=== PATIENT | male | born 1950 | race Caucasian/White ===

== ENCOUNTER 2019-03-25 05:43 | Inpatient (IN) | payer OTHER ==
[2019-03-17 14:44] LABS: BASOPHILS # (AUTO) 0.1 X10'3 (0-0.2); BASOPHILS % (AUTO) 1.2 % (0-1); EOSINOPHILS # (AUTO) 0.3 X10'3 (0-0.9); EOSINOPHILS % (AUTO) 3.6 % (0-6); LYMPHOCYTES % (AUTO) 25.8 % (21-51); MEAN CORPUSCULAR HEMOGLOBIN 29.2 PG (27.0-31.0); MEAN CORPUSCULAR HGB CONC 35.4 g/dL (33.0-36.5); MEAN CORPUSCULAR VOLUME 82.3 FL (78-98); MEAN PLATELET VOLUME 8.8 FL (7.4-10.4); MONOCYTES # (AUTO) 0.4 X10'3 (0-0.9); MONOCYTES % (AUTO) 5.7 % (2-12); NEUTROPHILS # (AUTO) 4.9 X10'3 (1.8-7.7); NEUTROPHILS % (AUTO) 63.7 % (42-75); PRE OP HEMATOCRIT 43.6 % (42.0-52.0); PRE OP HEMOGLOBIN 15.5 g/dL (14.0-17.9); PRE OP PLATELET COUNT 270 X10'3 (140-440)
[2019-03-17 15:15] LABS: ALBUMIN 4.3 G/DL (3.4-5.0); ALBUMIN/GLOBULIN RATIO 1.2 (1.1-1.5); ALKALINE PHOSPHATASE 127 IU/L (46-116); BLOOD UREA NITROGEN 35 MG/DL (7-18); BUN/CREATININE RATIO 22.3 (5.4-32.0); CALCIUM 9.4 MG/DL (8.5-10.1); CHLORIDE 104 MMOL/L (99-107); CREATININE 1.57 MG/DL (0.60-1.10); PRE OP ALT 40 U/L (30-65); PRE OP ANION GAP 12 (8-16); PRE OP AST 20 U/L (10-37); PRE OP BILIRUB, TOTAL 0.5 MG/DL (0.0-1.0); PRE OP GLUCOSE 182 MG/DL (70-104); PRE OP POTASSIUM 3.7 MMOL/L (3.4-5.1); PRE OP SODIUM 140 MMOL/L (135-145); TOTAL CARBON DIOXIDE 24.2 MMOL/L (24-32); eGFR 44 ML/MIN
[2019-03-25] VITALS (18 sets, daily range): BP systolic 101–152; BP diastolic 50–74
[~2019-03-25] VITALS: Ht 157.5 cm; Wt 74.0 kg
[~2019-03-25 05:43] MED LIST: AMLO2.5T2 PO; IBUP-1984 PO; LISI1TAB28 PO; VANCOMYCIN INJ 1000 MG in NORMAL SALINE 250ml IV.SOLN IV ONE; cefazolin/dext.iso 2gm/100 ML IV ONE; famotidine 20mg tablet PO ONE
[2019-03-25] MEDS ORDERED: LIDOcaine 1% (10mg/ml) 2ml vial ONE (06:30)
[2019-03-25] MEDS: ringers solution, lacted 1,000 ML IV SCH ×2 (06:43→16:53)
[2019-03-25] MEDS ORDERED: tetracaine 1% (10mg/ml) pres. free inj. ONE (07:22)
[2019-03-25] MEDS ORDERED: fentaNYL/PF 50MCG/1 ML 2ML syringe ONE (07:25)
[2019-03-25] MEDS ORDERED: MIDAZolam 1mg/ml 10ml vial ONE (07:25)
[2019-03-25] MEDS ORDERED: ePHEDrine 50MG/ML INJ. ONE (07:37)
[2019-03-25] MEDS ORDERED: ringers solution, lacted 1,000 ML IV SCH (08:24)
[2019-03-25] MEDS ORDERED: morphine 4 MG/ML inj SYRINge IV PRN ×2 (08:25)
[2019-03-25] MEDS ORDERED: meperidine/PF 25mg/ml syringe IV PRN ×3 (08:25)
[2019-03-25] MEDS ORDERED: ondansetron/PF 4mg/2ml inj IV PRN (08:25)
[2019-03-25] MEDS ORDERED: proCHLORperazine 10 MG/2 ml inj IV PRN (08:25)
[2019-03-25] MEDS ORDERED: ketorolac trometh. 30mg/ml inj. ONE (08:55)
[2019-03-25] MEDS ORDERED: ROPIVAcaine 0.5% (5mg/ml) 30ml vial ONE (08:55)
[2019-03-25] MEDS ORDERED: ceFAZolin 1000mg inj ONE (09:27)
--- NOTE | 2019-03-25 09:43 | NUR ---
Received from OR via ORTHO BED WITH [facility], accompanied by Anesthesiologist GIRMA and report given by Anesthesiolgist. PATIENT WITH 18G PIV IN LEFT UE RUNNING LR AT 100. PATIENT WITH RIGHT LATERAL INCISION COVERED WITH 4X4S AND OPSITE DRESSING THAT IS CDI. + DP ON RIGHT FOOT. SENSATION FROM SPINAL IS AT L1 UPON ARRIVAL. PATIENT ON ROOM AIR. SCDS ON. LINDO CATHETER PRESENT WITH CLEAR YELLOW URINE PRESENT. Addendum: 03/25/19 at 1017 by Surinder Grier RN, RN Amended: Links added.
[2019-03-25] MEDS ORDERED: mag hydrox/Alum hydrox/simeth 30ml oral suspension PO PRN (09:50)
[2019-03-25] MEDS ORDERED: bisacodyl 10mg suppository rectal RC PRN (09:50)
[2019-03-25] MEDS ORDERED: diphenhydrAMINE 25mg capsule PO PRN ×2 (09:50)
[2019-03-25] MEDS ORDERED: acetaminophen 325mg tablet PO PRN (09:50)
[2019-03-25] MEDS ORDERED: metoclopramide 5 mg/ml inj IV PRN (09:50)
[2019-03-25] MEDS ORDERED: HYDROcodone/acetaminophen 10/325mg tab PO PRN (09:50)
[2019-03-25] MEDS ORDERED: magnesium hydroxide 30ml (MOM) UD suspension PO PRN (09:50)
--- NOTE | 2019-03-25 10:43 | NUR ---
ALL CRITERIA FOR TRANSFER TO THE FLOOR HAS BEEN ACHIEVED. VSS. BED LOW, CALL LIGHT AND VS. SET IN PLACE. JUSTINA SCALES PRESENT TO ACCEPT CARE. PATIENT RESTING COMFORTABLY IN BED. BELONGINGS SENT WITH PATIENT. DRESSINGS CDI. PATIENT VSS. Addendum: 03/25/19 at 1056 by Surinder Lund - JUSTINA HORN Amended: Links added.
[2019-03-25] MEDS: HYDROcodone/acetaminophen 10/325mg tab PO PRN ×2 (11:53→16:34)
[2019-03-25] MEDS: ceFAZolin 1GM/D5W- ADD-VANTAGE 50 ML IV SCH ×2 (15:25→23:52)
[2019-03-25] MEDS: potassium cl 20mEq in 1/2 NS 1,000 ML IV SCH ×2 (15:25→18:47)
[2019-03-25] MEDS: gabapentin 300mg capsule PO SCH ×2 (15:28→19:31)
[2019-03-25] MEDS: acetaminophen 325mg tablet PO SCH ×2 (15:29→19:30)
--- NOTE | 2019-03-25 18:11 | NUR ---
Problems reprioritized. Patient report given, questions answered & plan of care reviewed with Kristy Thomas RN.
[2019-03-25] MEDS: ascorbic acid 500mg tablet PO SCH (19:31)
[2019-03-25] MEDS ORDERED: vancomycin/NS 1 GM ADD-VANTAGE 250 ML IV SCH (20:00)
[2019-03-25] MEDS: sennosides 8.6mg tablet PO SCH (21:00)
[2019-03-26] MEDS: potassium cl 20mEq in 1/2 NS 1,000 ML IV SCH ×3 (00:38→17:46)
[2019-03-26 02:00] VITALS: BP 117/61
[2019-03-26] MEDS: acetaminophen 325mg tablet PO SCH ×4 (02:00→20:00)
[2019-03-26] MEDS: ondansetron/PF 4mg/2ml inj IV PRN ×2 (05:37→13:59)
[2019-03-26 06:00] VITALS: BP 114/60
--- NOTE | 2019-03-26 06:17 | NUR ---
Problems reprioritized. Patient report given, questions answered & plan of care reviewed with JUSTINA Zamora.
--- NOTE | 2019-03-26 06:20 | NUR ---
Patient in room ORTHO 4021. I have received report from Kristy Barraza RN and had the opportunity to ask questions and assume patient care.
[2019-03-26 06:31] LABS: ANION GAP 7 (8-16); CHLORIDE 105 MMOL/L (99-107); POTASSIUM 4.1 MMOL/L (3.5-5.1); SODIUM 138 MMOL/L (135-145); TOTAL CARBON DIOXIDE 26.2 MMOL/L (24-32)
[2019-03-26 07:13] LABS: BASOPHILS % (AUTO) 0.4 % (0-1); EOSINOPHILS # (AUTO) 0.2 X10'3 (0-0.9); EOSINOPHILS % (AUTO) 1.9 % (0-6); HEMATOCRIT 34.4 % (42.0-52.0); HEMOGLOBIN 12.1 g/dl (14.0-17.9); LYMPHOCYTES # (AUTO) 2.1 X10'3 (1.1-4.8); LYMPHOCYTES % (AUTO) 21.4 % (21-51); MEAN CORPUSCULAR HEMOGLOBIN 29.6 PG (27.0-31.0); MEAN CORPUSCULAR HGB CONC 35.1 g/dL (33.0-36.5); MEAN CORPUSCULAR VOLUME 84.3 FL (78-98); MEAN PLATELET VOLUME 9.3 FL (7.4-10.4); MONOCYTES # (AUTO) 1.1 X10'3 (0-0.9); MONOCYTES % (AUTO) 11.2 % (2-12); NEUTROPHILS # (AUTO) 6.3 X10'3 (1.8-7.7); NEUTROPHILS % (AUTO) 65.1 % (42-75); PLATELET COUNT 201 X10'3 (140-440); RED BLOOD COUNT 4.08 X10'6 (4.70-6.10); RED CELL DISTRIBUTION WIDTH 13.2 % (11.5-14.5); WHITE BLOOD COUNT 9.6 X10'3 (4.5-11.0)
[2019-03-26] MEDS: gabapentin 300mg capsule PO SCH ×3 (08:30→20:06)
[2019-03-26] MEDS: HYDROchlorothiazide 12.5mg capsule PO SCH (08:30)
[2019-03-26] MEDS: multivitamins, therapeutics tablet PO SCH (08:31)
[2019-03-26] MEDS: amLODIPine 5mg tablet PO SCH (08:31)
[2019-03-26] MEDS: ascorbic acid 500mg tablet PO SCH ×2 (08:32→20:00)
[2019-03-26] MEDS: enoxaparin 40mg/0.4ml syringe SQ SCH (08:32)
[2019-03-26 09:46] VITALS: BP 97/61
--- NOTE | 2019-03-26 13:57 | NUR ---
Joint replacement: Pt seen at bedside provided with written and verbal protein education. Pt reports low appetite secondary to surgery and medications making him feel nauseous. Pt on regular diet documented with 75% PO intake at dinner last night however 0% at breakfast today. Pt agrees to strawberry Ensure High Protein TID, notified. ONS to be sent once verifies in Respicardia. Pt denies any food allergies, difficulty chewing/swallowing, or constipation/diarrhea. [facility] 03/25. Will continue to follow. Addendum: 03/26/19 at [address] Amended: Links added.
--- NOTE | 2019-03-26 14:20 | NUR ---
Patient in room ORTHO 4021. I have received report from JUSTINA Taylor in ED and had the opportunity to ask questions and assume patient care.
[2019-03-26 18:00] VITALS: BP 108/54
--- NOTE | 2019-03-26 18:28 | NUR ---
Problems reprioritized. Patient report given, questions answered & plan of care reviewed with Kristy Barraza RN.
[2019-03-26] MEDS: sennosides 8.6mg tablet PO SCH (20:07)
[2019-03-26] MEDS ORDERED: lisinopril 20mg tablet PO SCH (21:00)
[2019-03-26 22:12] VITALS: BP 105/57
[2019-03-27] MEDS: acetaminophen 325mg tablet PO SCH ×2 (01:20→08:40)
[2019-03-27] MEDS: potassium cl 20mEq in 1/2 NS 1,000 ML IV SCH (01:46)
[2019-03-27 06:00] VITALS: BP 125/52
--- NOTE | 2019-03-27 06:32 | NUR ---
Problems reprioritized. Patient report given, questions answered & plan of care reviewed with JUSTINA Chilel.
[2019-03-27 06:54] LABS: BASOPHILS % (AUTO) 0.2 % (0-1); EOSINOPHILS # (AUTO) 0.1 X10'3 (0-0.9); EOSINOPHILS % (AUTO) 0.7 % (0-6); HEMATOCRIT 33.1 % (42.0-52.0); HEMOGLOBIN 11.8 g/dl (14.0-17.9); LYMPHOCYTES # (AUTO) 2.1 X10'3 (1.1-4.8); LYMPHOCYTES % (AUTO) 19.1 % (21-51); MEAN CORPUSCULAR HEMOGLOBIN 29.5 PG (27.0-31.0); MEAN CORPUSCULAR HGB CONC 35.7 g/dL (33.0-36.5); MEAN CORPUSCULAR VOLUME 82.5 FL (78-98); MEAN PLATELET VOLUME 9.5 FL (7.4-10.4); MONOCYTES # (AUTO) 1.1 X10'3 (0-0.9); MONOCYTES % (AUTO) 9.9 % (2-12); NEUTROPHILS # (AUTO) 7.7 X10'3 (1.8-7.7); NEUTROPHILS % (AUTO) 70.1 % (42-75); PLATELET COUNT 204 X10'3 (140-440); RED BLOOD COUNT 4.01 X10'6 (4.70-6.10); RED CELL DISTRIBUTION WIDTH 13.1 % (11.5-14.5); WHITE BLOOD COUNT 10.9 X10'3 (4.5-11.0)
[2019-03-27] MEDS: gabapentin 300mg capsule PO SCH (08:00)
[2019-03-27] MEDS: amLODIPine 5mg tablet PO SCH (08:38)
[2019-03-27] MEDS: multivitamins, therapeutics tablet PO SCH (08:39)
[2019-03-27] MEDS: ascorbic acid 500mg tablet PO SCH (08:39)
[2019-03-27] MEDS: HYDROchlorothiazide 12.5mg capsule PO SCH (08:39)
[2019-03-27] MEDS: enoxaparin 40mg/0.4ml syringe SQ SCH (08:40)
[2019-03-27 10:00] VITALS: BP 122/48
--- NOTE | 2019-03-27 11:07 | NUR ---
Surgical wound, covered with gauze and tegaderm. Addendum: 03/27/19 at 1108 by Ranjana Hay RN Amended: Links added.
== END 2019-03-27 11:18 | disposition home or self-care (01) | DRG 470 ==
LOC: PAS 05:43 → EDSTATUS 07:30 → ORTHO 4S 09:55
PROVIDERS: ADMIT Orthopaedic Surgery; ATTEND Orthopaedic Surgery
PROC: 0SR904Z Replacement of Right Hip Joint with Ceramic on Polyethylene Synthetic Substitute, Open Approach (ICD-10-PCS; principal; 2019-03-25 07:21)
DX: M16.0 Bilateral primary osteoarthritis of hip (principal); D62 Acute posthemorrhagic anemia; M81.0 Age-related osteoporosis without current pathological fracture; E11.9 Type 2 diabetes mellitus without complications; I10 Essential (primary) hypertension; K21.9 Gastro-esophageal reflux disease without esophagitis; E78.5 Hyperlipidemia, unspecified; E66.8 Other obesity; J44.9 Chronic obstructive pulmonary disease, unspecified; Z79.82 Long term (current) use of aspirin; Z79.899 Other long term (current) drug therapy; Z90.79 Acquired absence of other genital organ(s); Z68.29 Body mass index [BMI] 29.0-29.9, adult
CPT/HCPCS: 36415; 73502; 76000; 80051; 80053; 82948; 83036; 85025; 86885; 86900; 86901; 87081; 97110; 97116; 97162; 97530; A4338; A6250; A6258; A6446; A6449; A6455; A7000; C1776; G0378; J0690; J1644; J1650; J1885; J2001; J2250; J2405; J2765; J2795; J3010; J3370; J3480; J7030; J7120

== ENCOUNTER 2019-07-22 05:26 | Inpatient (IN) | payer OTHER ==
[2019-07-21 16:53] LABS: BASOPHILS % (AUTO) 0.5 % (0-1); EOSINOPHILS # (AUTO) 0.1 X10'3 (0-0.9); EOSINOPHILS % (AUTO) 0.7 % (0-6); LYMPHOCYTES # (AUTO) 1.1 X10'3 (1.1-4.8); MEAN CORPUSCULAR HEMOGLOBIN 28.6 PG (27.0-31.0); MEAN CORPUSCULAR HGB CONC 35.4 g/dL (33.0-36.5); MEAN CORPUSCULAR VOLUME 80.8 FL (78-98); MEAN PLATELET VOLUME 8.6 FL (7.4-10.4); MONOCYTES # (AUTO) 0.7 X10'3 (0-0.9); MONOCYTES % (AUTO) 8.4 % (2-12); NEUTROPHILS # (AUTO) 6.4 X10'3 (1.8-7.7); NEUTROPHILS % (AUTO) 77.4 % (42-75); PRE OP HEMATOCRIT 44.8 % (42.0-52.0); PRE OP HEMOGLOBIN 15.9 g/dL (14.0-17.9); PRE OP PLATELET COUNT 283 X10'3 (140-440); RED BLOOD COUNT 5.55 X10'6 (4.70-6.10); RED CELL DISTRIBUTION WIDTH 13.9 % (11.5-14.5)
[2019-07-21 17:05] LABS: PRE OP PROTIME 10.3 SECONDS (9.0-12.0)
[2019-07-21 17:13] LABS: ALBUMIN 4.4 G/DL (3.4-5.0); ALBUMIN/GLOBULIN RATIO 1.1 (1.1-1.5); ALKALINE PHOSPHATASE 127 IU/L (46-116); BLOOD UREA NITROGEN 18 MG/DL (7-18); BUN/CREATININE RATIO 12.5 (5.4-32.0); CALCIUM 9.6 MG/DL (8.5-10.1); CHLORIDE 102 MMOL/L (99-107); CREATININE 1.44 MG/DL (0.60-1.10); PRE OP ALT 33 U/L (30-65); PRE OP ANION GAP 11 (8-16); PRE OP AST 24 U/L (10-37); PRE OP BILIRUB, TOTAL 0.4 MG/DL (0.0-1.0); PRE OP GLUCOSE 124 MG/DL (70-104); PRE OP POTASSIUM 3.7 MMOL/L (3.4-5.1); PRE OP SODIUM 138 MMOL/L (135-145); TOTAL CARBON DIOXIDE 24.9 MMOL/L (24-32); TOTAL PROTEIN 8.3 G/DL (6.4-8.2); eGFR 48 ML/MIN
[~2019-07-22] VITALS: Ht 157.5 cm; Wt 73.4 kg
[2019-07-22] VITALS (18 sets, daily range): BP systolic 104–166; BP diastolic 48–88
[~2019-07-22 05:26] MED LIST changes: -IBUP-1984 PO; -VANCOMYCIN INJ 1000 MG in NORMAL SALINE 250ml IV.SOLN IV ONE; -cefazolin/dext.iso 2gm/100 ML IV ONE; -famotidine 20mg tablet PO ONE; +ringers solution, lacted 1,000 ML IV SCH
[2019-07-22] MEDS ORDERED: famotidine 20mg tablet PO ONE (05:30)
[2019-07-22] MEDS ORDERED: mupirocin 2% nasal ointment 1gm UD NS ONE (05:30)
[2019-07-22] MEDS ORDERED: vancomycin inj 1,500 MG in normal saline 300ml IV soln IV ONE (05:30)
[2019-07-22] MEDS ORDERED: Cefazolin 2GM/100ML NS IVPB 100 ML IV ONE (05:30)
[2019-07-22] MEDS ORDERED: LIDOcaine 1% (10mg/ml) 2ml vial ONE (05:53)
[2019-07-22] MEDS ORDERED: MIDAZolam 5mg/5ml vial ONE (06:38)
[2019-07-22] MEDS ORDERED: fentaNYL/PF 50MCG/1 ML 2ML syringe ONE (06:38)
[2019-07-22] MEDS ORDERED: tetracaine 1% (10mg/ml) pres. free inj. ONE (06:41)
[2019-07-22] MEDS ORDERED: ketorolac trometh. 30mg/ml inj. ONE (06:46)
[2019-07-22] MEDS ORDERED: ROPIVAcaine 0.5% (5mg/ml) 30ml vial ONE (06:46)
[2019-07-22] MEDS ORDERED: HYDROmorphone inj. 0.5 MG/0.5 ML DISP.SYRIN IV PRN ×2 (08:35)
[2019-07-22] MEDS ORDERED: morphine 4 MG/ML inj SYRINge IV PRN ×2 (08:35)
[2019-07-22] MEDS ORDERED: ringers solution, lacted 1,000 ML IV SCH (08:35)
[2019-07-22] MEDS ORDERED: ondansetron/PF 4mg/2ml inj IV PRN (08:35)
[2019-07-22] MEDS ORDERED: TRANEXAMIC ACID 1 GM IN NACL,ISO-OS 100 ML IV ONE (08:45)
[2019-07-22] MEDS ORDERED: glycopyrrolate 0.2mg/ml inj ONE (10:08)
[2019-07-22] MEDS ORDERED: propofol inj 40 ML IV ONE (10:08)
[2019-07-22] MEDS ORDERED: LIDOcaine 1%/PF 5ML 10 MG/ML VIAL ONE (10:08)
[2019-07-22] MEDS ORDERED: diphenhydrAMINE 50 mg/ml inj ONE (10:08)
--- NOTE | 2019-07-22 10:18 | NUR ---
Received from OR via BED, accompanied by Anesthesiologist DR CORRIGAN and report given by Anesthesiologist. PT DROWSY, DENEIS PAIN, LEFT HIP/GROIN W/GAUZE DRSG CDI, HEMOVAC TO LEFT HIP TO BULB SUCTION W/SANGUINOUS DRAINAGE, LINDO CATHETER TO GRAVTIY DRAINAGE W/DARK YELLOW URINE DRAINING, DERMATOME LEVEL T-12, L-1. Addendum: 07/22/19 at 1057 by Liz Castro RN Amended: Links added. Addendum: 07/22/19 at 1152 by Liz Castro RN LATE ENTRY: ABDUCTOR WEDGE IN PLACE.
[2019-07-22] MEDS ORDERED: HYDROcodone/acetaminophen 10/325mg tab PO PRN ×2 (10:30)
[2019-07-22] MEDS ORDERED: diphenhydrAMINE 25mg capsule PO PRN ×2 (10:30)
[2019-07-22] MEDS ORDERED: bisacodyl 10mg suppository rectal RC PRN (10:30)
[2019-07-22] MEDS ORDERED: magnesium hydroxide 30ml (MOM) UD suspension PO PRN (10:30)
[2019-07-22] MEDS ORDERED: acetaminophen 325mg tablet PO PRN (10:30)
--- NOTE | 2019-07-22 11:08 | NUR ---
I received patient report from Liz in recovery
--- NOTE | 2019-07-22 11:28 | NUR ---
Report called to receiving nurse. Transferred via BED ON TELE, 1 LARGE DUFFLE BAG OF Belongings SENT W/PT TO ROOM 4020A, BLL, CALL LIGHT GIVEN, SIDE RAILS UP X 2, RECEIVING RN AT BEDSIDE TO RECEIVE PT. Special Issues communicated to receiving nurse. YES. Addendum: 07/22/19 at 1141 by Liz Castro RN Amended: Links added.
[2019-07-22] MEDS: gabapentin 300mg capsule PO SCH ×2 (12:50→20:17)
[2019-07-22] MEDS: potassium cl 20mEq in 1/2 NS 1,000 ML IV SCH ×3 (12:54→22:28)
[2019-07-22] MEDS ORDERED: oxyCODONE/APAP 10/325mg tablet PO PRN (13:35)
--- NOTE | 2019-07-22 16:35 | NUR ---
Spoke to Dr. Rios to order IV pain meds dilaudid 1mg q4hrs for severe pain
[2019-07-22] MEDS: HYDROmorphone 1 mg/ml syringe IV PRN (16:42)
[2019-07-22] MEDS: ceFAZolin/D5W- 1GM premix 50 ML IV SCH ×2 (16:50→23:49)
--- NOTE | 2019-07-22 18:03 | NUR ---
Problems reprioritized. Patient report given, questions answered & plan of care reviewed with Kristy Thomas RN.
[2019-07-22] MEDS: oxyCODONE/APAP 10/325mg tablet PO PRN ×2 (18:44→22:52)
[2019-07-22] MEDS ORDERED: vancomycin/NS 1 GM ADD-VANTAGE 250 ML IV SCH (20:00)
[2019-07-22] MEDS: ascorbic acid 500mg tablet PO SCH (20:17)
[2019-07-22] MEDS: sennosides 8.6mg tablet PO SCH (20:17)
[2019-07-22] MEDS: HYDROchlorothiazide 12.5mg capsule PO SCH (20:17)
[2019-07-22] MEDS: lisinopril 20mg tablet PO SCH (20:18)
[2019-07-23 02:03] VITALS: BP 119/62
[2019-07-23] MEDS: oxyCODONE/APAP 10/325mg tablet PO PRN (04:53)
[2019-07-23 06:00] VITALS: BP 122/69
[2019-07-23 06:27] LABS: BASOPHILS # (AUTO) 0.1 X10'3 (0-0.2); BASOPHILS % (AUTO) 0.6 % (0-1); EOSINOPHILS # (AUTO) 0.1 X10'3 (0-0.9); EOSINOPHILS % (AUTO) 1.2 % (0-6); HEMATOCRIT 35.1 % (42.0-52.0); HEMOGLOBIN 12.5 g/dl (14.0-17.9); LYMPHOCYTES # (AUTO) 1.5 X10'3 (1.1-4.8); LYMPHOCYTES % (AUTO) 14.7 % (21-51); MEAN CORPUSCULAR HGB CONC 35.6 g/dL (33.0-36.5); MEAN CORPUSCULAR VOLUME 81.5 FL (78-98); MEAN PLATELET VOLUME 8.2 FL (7.4-10.4); MONOCYTES # (AUTO) 1.3 X10'3 (0-0.9); MONOCYTES % (AUTO) 13.1 % (2-12); NEUTROPHILS # (AUTO) 7.1 X10'3 (1.8-7.7); NEUTROPHILS % (AUTO) 70.4 % (42-75); PLATELET COUNT 219 X10'3 (140-440); RED CELL DISTRIBUTION WIDTH 13.9 % (11.5-14.5)
--- NOTE | 2019-07-23 06:32 | NUR ---
Patient in room ORTHO 4020A. I have received report from JENNIFER HORN and had the opportunity to ask questions and assume patient care.
[2019-07-23 06:55] LABS: ANION GAP 8 (8-16); CHLORIDE 101 MMOL/L (99-107); POTASSIUM 4.1 MMOL/L (3.5-5.1); SODIUM 135 MMOL/L (135-145); TOTAL CARBON DIOXIDE 25.8 MMOL/L (24-32)
[2019-07-23] MEDS: gabapentin 300mg capsule PO SCH ×3 (07:11→20:20)
[2019-07-23] MEDS: amLODIPine 5mg tablet PO SCH (07:12)
[2019-07-23] MEDS: multivitamins, therapeutics tablet PO SCH (07:12)
[2019-07-23] MEDS: ascorbic acid 500mg tablet PO SCH ×2 (07:12→20:11)
[2019-07-23] MEDS: enoxaparin 40mg/0.4ml syringe SQ SCH (07:13)
[2019-07-23] MEDS: HYDROmorphone 1 mg/ml syringe IV PRN (07:14)
[2019-07-23] MEDS: ondansetron/PF 4mg/2ml inj IV PRN ×2 (09:07→18:00)
[2019-07-23 10:00] VITALS: BP 103/48
[2019-07-23] MEDS: potassium cl 20mEq in 1/2 NS 1,000 ML IV SCH ×2 (10:05→18:17)
[2019-07-23 14:00] VITALS: BP 125/57
[2019-07-23 18:00] VITALS: BP 122/60
--- NOTE | 2019-07-23 19:00 | NUR ---
Patient in room ORTHO 4020. I have received report from Thania HORN and had the opportunity to ask questions and assume patient care.
[2019-07-23] MEDS: celeCOXIB 100mg capsule PO SCH (20:11)
[2019-07-23] MEDS: HYDROchlorothiazide 12.5mg capsule PO SCH (20:12)
[2019-07-23] MEDS: sennosides 8.6mg tablet PO SCH (20:20)
[2019-07-23] MEDS: lisinopril 20mg tablet PO SCH (21:00)
[2019-07-23 22:00] VITALS: BP 99/58
[2019-07-24] MEDS: potassium cl 20mEq in 1/2 NS 1,000 ML IV SCH (02:30)
[2019-07-24 05:00] VITALS: BP 103/45
[2019-07-24 05:22] LABS: BASOPHILS % (AUTO) 0.5 % (0-1); EOSINOPHILS # (AUTO) 0.3 X10'3 (0-0.9); EOSINOPHILS % (AUTO) 2.6 % (0-6); HEMATOCRIT 30.5 % (42.0-52.0); HEMOGLOBIN 10.7 g/dl (14.0-17.9); LYMPHOCYTES # (AUTO) 1.7 X10'3 (1.1-4.8); LYMPHOCYTES % (AUTO) 17.4 % (21-51); MEAN CORPUSCULAR HEMOGLOBIN 29.1 PG (27.0-31.0); MEAN CORPUSCULAR HGB CONC 35.2 g/dL (33.0-36.5); MEAN CORPUSCULAR VOLUME 82.7 FL (78-98); MEAN PLATELET VOLUME 8.4 FL (7.4-10.4); MONOCYTES # (AUTO) 1.1 X10'3 (0-0.9); MONOCYTES % (AUTO) 11.2 % (2-12); NEUTROPHILS # (AUTO) 6.7 X10'3 (1.8-7.7); NEUTROPHILS % (AUTO) 68.3 % (42-75); PLATELET COUNT 173 X10'3 (140-440); RED BLOOD COUNT 3.69 X10'6 (4.70-6.10); RED CELL DISTRIBUTION WIDTH 13.6 % (11.5-14.5); WHITE BLOOD COUNT 9.8 X10'3 (4.5-11.0)
[2019-07-24] MEDS: multivitamins, therapeutics tablet PO SCH (07:13)
[2019-07-24] MEDS: enoxaparin 40mg/0.4ml syringe SQ SCH (07:13)
[2019-07-24] MEDS: ascorbic acid 500mg tablet PO SCH (07:13)
[2019-07-24] MEDS: celeCOXIB 100mg capsule PO SCH (07:13)
[2019-07-24] MEDS: amLODIPine 5mg tablet PO SCH (07:13)
[2019-07-24] MEDS: gabapentin 300mg capsule PO SCH (07:15)
--- NOTE | 2019-07-24 08:16 | NUR ---
Dc'd Hemovac drain to L hip tip intact. 4x4 gauze and tegaderm dressing applied to drain site. Pt tolerated procedure well.
[2019-07-24 11:20] VITALS: BP 113/59
--- NOTE | 2019-07-24 13:07 | NUR ---
PT DISCHARGED IN STABLE CONDITION. LEFT FACILITY IN PRIVATE VEHICLE WITH FAMILY. IV DC CANULA INTACT. ALL BELONGINGS IN HAND. SCRIPT FOR PAIN MEDS TO BE CALLED INTO [facility] [address] BY DR LOPEZ. FOLLOW UP INSTRUCTIONS GIVEN, ALL QUESTIONS ANSWERED.
== END 2019-07-24 12:55 | disposition home or self-care (01) | DRG 470 ==
LOC: PAS IN 05:26 → EDSTATUS 07:30 → ORTHO 4S 11:27
PROVIDERS: ADMIT Orthopaedic Surgery; ATTEND Orthopaedic Surgery
PROC: 0SRB0JZ Replacement of Left Hip Joint with Synthetic Substitute, Open Approach (ICD-10-PCS; principal; 2019-07-22 07:25)
DX: M16.12 Unilateral primary osteoarthritis, left hip (principal); D62 Acute posthemorrhagic anemia; E11.9 Type 2 diabetes mellitus without complications; I10 Essential (primary) hypertension; Z96.641 Presence of right artificial hip joint; M81.0 Age-related osteoporosis without current pathological fracture; J44.9 Chronic obstructive pulmonary disease, unspecified; K21.9 Gastro-esophageal reflux disease without esophagitis; E78.5 Hyperlipidemia, unspecified; E66.8 Other obesity; Z68.29 Body mass index [BMI] 29.0-29.9, adult; Z79.899 Other long term (current) drug therapy
CPT/HCPCS: 36415; 73502; 76000; 80051; 80053; 82948; 85025; 85610; 85730; 86885; 86900; 86901; 87081; 93005; 97110; 97112; 97116; 97161; 97530; A6250; A6258; A6446; A6449; A6455; A7000; C1758; C1776; G0378; J0690; J1170; J1200; J1644; J1650; J1885; J2001; J2250; J2405; J2704; J2795; J3010; J3370; J3480; J3490; J7030; J7120

== ENCOUNTER → 2021-02-22 | Day surgery (SDC) | payer OTHER ==
[2021-02-14 16:17] LABS: BASOPHILS % (AUTO) 0.6 % (0-1); EOSINOPHILS # (AUTO) 0.1 X10'3 (0-0.9); EOSINOPHILS % (AUTO) 1.5 % (0-6); LYMPHOCYTES # (AUTO) 1.8 X10'3 (1.1-4.8); LYMPHOCYTES % (AUTO) 24.7 % (21-51); MEAN CORPUSCULAR HGB CONC 35.2 g/dL (33.0-36.5); MEAN CORPUSCULAR VOLUME 82.4 FL (78-98); MEAN PLATELET VOLUME 9.2 FL (7.4-10.4); MONOCYTES # (AUTO) 0.5 X10'3 (0-0.9); MONOCYTES % (AUTO) 6.8 % (2-12); NEUTROPHILS % (AUTO) 66.4 % (42-75); PRE OP HEMATOCRIT 42.6 % (42.0-52.0); PRE OP PLATELET COUNT 240 X10'3 (140-440); RED BLOOD COUNT 5.17 X10'6 (4.70-6.10); RED CELL DISTRIBUTION WIDTH 13.6 % (11.5-14.5)
[2021-02-14 16:31] LABS: ALBUMIN 4.4 G/DL (3.4-5.0); ALBUMIN/GLOBULIN RATIO 1.2 (1.1-1.5); ALKALINE PHOSPHATASE 92 IU/L (46-116); BLOOD UREA NITROGEN 34 MG/DL (7-18); BUN/CREATININE RATIO 18.5 (5.4-32.0); CALCIUM 9.1 MG/DL (8.5-10.1); CHLORIDE 104 MMOL/L (99-107); CREATININE 1.84 MG/DL (0.60-1.10); PRE OP ALT 33 U/L (30-65); PRE OP ANION GAP 11 (8-16); PRE OP AST 16 U/L (10-37); PRE OP BILIRUB, TOTAL 0.5 MG/DL (0.0-1.0); PRE OP GLUCOSE 96 MG/DL (70-104); PRE OP POTASSIUM 3.8 MMOL/L (3.4-5.1); PRE OP SODIUM 138 MMOL/L (135-145); TOTAL CARBON DIOXIDE 23.4 MMOL/L (24-32); eGFR 36 ML/MIN
[2021-02-22] VITALS (7 sets, daily range): BP systolic 123–167; BP diastolic 64–79
[~2021-02-22] VITALS: Ht 160 cm; Wt 73.9 kg
[~2021-02-22] MED LIST changes: +BUPIVAcaine/PF 2.5mg/ml (0.25%) 10ml vial ONE; +HYDROcodone/acetaminophen 10/325mg tab PO ONE; +LIDOcaine 2% (20mg/ml) 5ml vial ONE; -LISI1TAB28 PO; +LISI1TAB51 PO; +cefazolin/dext.iso 2gm/100ml IV ONE; +dexamethasone sod phosphate 10mg/ml inj ONE; +famotidine 20mg tablet PO ONE; +fentaNYL/PF 50MCG/1 ML 2ML syringe ONE; +meperidine/PF 25mg/ml syringe IV PRN; +midazolam 1 mg/ML 2ml injection ONE; +morphine 2 MG/ML inj. syringe IV PRN; +morphine 4 MG/ML inj SYRINge IV PRN; +ondansetron/PF 4mg/2ml inj IV PRN; +ondansetron/PF 4mg/2ml inj ONE; +proCHLORperazine 10 MG/2 ml inj IV PRN; +propofol inj 20 ML IV ONE; +sevoflurane 250ml liquid IH ONE; +vancomycin 1,500 MG in NS 300ml IV soln IV ONE
--- NOTE | 2021-02-22 12:08 | NUR ---
Received from OR via [facility] , accompanied by Anesthesiologist AMAIRANI and report given by Anesthesiolgist. DENIES PAIN AT THIS TIME. LEFT HIP DRESSING IS CDI. PATIENT WITH 10L MASK ON WITH 100% SATURATIONS. Addendum: 02/22/21 at 1213 by Surinder Grier RN, RN Amended: Links added.
== END | disposition home or self-care (01) ==
LOC: PAS 09:02
PROVIDERS: ATTEND Orthopaedic Surgery
DX: T84.84XA Pain due to internal orthopedic prosthetic devices, implants and grafts, initial encounter (principal); M70.62 Trochanteric bursitis, left hip; M81.0 Age-related osteoporosis without current pathological fracture; J44.9 Chronic obstructive pulmonary disease, unspecified; K21.9 Gastro-esophageal reflux disease without esophagitis; I12.9 Hypertensive chronic kidney disease with stage 1 through stage 4 chronic kidney disease, or unspecified chronic kidney disease; N18.30 Chronic kidney disease, stage 3 unspecified; E78.5 Hyperlipidemia, unspecified; E66.8 Other obesity; Z68.30 Body mass index [BMI] 30.0-30.9, adult; M19.012 Primary osteoarthritis, left shoulder; F12.90 Cannabis use, unspecified, uncomplicated; Z96.641 Presence of right artificial hip joint; Z79.899 Other long term (current) drug therapy; Z98.890 Other specified postprocedural states; Y92.89 Other specified places as the place of occurrence of the external cause; Y83.8 Other surgical procedures as the cause of abnormal reaction of the patient, or of later complication, without mention of misadventure at the time of the procedure
CPT/HCPCS: 20680; 36415; 73501; 76000; 80053; 82948; 85025; J1100; J2001; J2250; J2405; J2704; J3010; J3370; J3490; J7040; A4618; A6250; A7000; J7120

== ENCOUNTER 2022-09-29 06:52 | Emergency (ER) | payer OTHER ==
[~2022-09-29] VITALS: Ht 162.6 cm; Wt 72.0 kg
[~2022-09-29 06:52] MED LIST changes: +ASPI-1 PO; -BUPIVAcaine/PF 2.5mg/ml (0.25%) 10ml vial ONE; -HYDROcodone/acetaminophen 10/325mg tab PO ONE; -LIDOcaine 2% (20mg/ml) 5ml vial ONE; -cefazolin/dext.iso 2gm/100ml IV ONE; -dexamethasone sod phosphate 10mg/ml inj ONE; -famotidine 20mg tablet PO ONE; -fentaNYL/PF 50MCG/1 ML 2ML syringe ONE; -meperidine/PF 25mg/ml syringe IV PRN; -midazolam 1 mg/ML 2ml injection ONE; -morphine 2 MG/ML inj. syringe IV PRN; -morphine 4 MG/ML inj SYRINge IV PRN; -ondansetron/PF 4mg/2ml inj IV PRN; -ondansetron/PF 4mg/2ml inj ONE; -proCHLORperazine 10 MG/2 ml inj IV PRN; -propofol inj 20 ML IV ONE; -ringers solution, lacted 1,000 ML IV SCH; -sevoflurane 250ml liquid IH ONE; -vancomycin 1,500 MG in NS 300ml IV soln IV ONE
[2022-09-29 06:56] VITALS: BP 188/80
[2022-09-29] MEDS ORDERED: cephalexin 250mg capsule PO ONE (08:45)
[2022-09-29] MEDS ORDERED: CEPH-585 PO ×3 (08:46→09:22)
== END 2022-09-29 09:02 | disposition home or self-care (01) ==
LOC: ER 06:52
DX: G89.18 Other acute postprocedural pain (principal); M25.532 Pain in left wrist; Z88.8 Allergy status to other drugs, medicaments and biological substances
CPT/HCPCS: 99283; A6258; A6449